=== PATIENT | female | born 1990 | race Caucasian/White ===

== ENCOUNTER 2016-08-25 14:19 | Emergency (ER) | payer OTHER ==
[~2016-08-25] VITALS: Ht 162.6 cm; Wt 64.0 kg
[~2016-08-25 14:19] MED LIST: ACETAMINOPHEN/O1 TA3 PO; APRISO0.375 G1 PO; ATA10 PO; BENADRYL ALLERG25 M1 PO; BENTYL20 MG PO; CANASA1000 MG RC; CIPROFLOXACIN500 MG PO; DIF100 PO; DIPHENOX/ATROPI1 TA1 PO; ENTOCORT EC3 MG PO; EPIPEN 2-PAK1 MG/ML IM; FLA250 PO; LAC PO; LIALDA PO; LIALDA1.2 GM PO; LOMOTIL1 TAB PO; LORAZEPAM0.5 MG PO; MAC100 PO; MEDDP PO; MESALAMINE PR; OMEPRAZOLE40 M1 PO; PREDNISONE1 MG PO; PYR100 PO; PYRIDIUM200 MG PO; RXMED PO
[2016-08-25 15:36] LABS: CALCIUM 9.1 mg/dL (8.5-10.1); CARBON DIOXIDE 31.5 mmol/L (21-32); CHLORIDE SERUM 106 mmol/L (98-107); CREATININE SERUM 0.9 mg/dL (0.6-1.0); GFR1 > 60 mL/min; GLUCOSE SERUM 73 mg/dL (74-106); POTASSIUM SERUM 3.7 mmol/L (3.5-5.1); SODIUM SERUM 141 mmol/L (136-145)
[2016-08-25 15:39] LABS: BASOPHIL % 2.3 % (0-2); PLATELET COUNT 269 x10^3mcL (130-400); RED CELL DISTRIBUTION WIDTH 12.6 % (11.5-14.5)
[2016-08-25 15:42] LABS: ALBUMIN 3.6 g/dL (3.4-5.0); ALKALINE PHOSPHATASE 91 U/L (46-116); ALT/SGPT 48 U/L (14-59); AMYLASE 82 U/L (25-115); AST/SGOT 31 U/L (15-37); BILIRUBIN TOTAL 0.64 mg/dL (0.20-1.00); LIPASE 190 IU/L (73-393); TOTAL PROTEIN, SERUM 7.7 g/dL (6.4-8.2)
[2016-08-25 17:03] VITALS: BP 120/64
== END 2016-08-25 17:03 | disposition home or self-care (01) ==
LOC: ED 14:19
PROVIDERS: Emergency Medicine
DX: K51.90 Ulcerative colitis, unspecified, without complications (principal)
CPT/HCPCS: 83880; J2405; J2930; J3010; J7030

== ENCOUNTER 2016-10-14 23:38 | Emergency (ER) | payer OTHER ==
[2016-10-15 03:14] LABS: BASOPHIL % 0.6 % (0-2); PLATELET COUNT 285 x10^3mcL (130-400); RED CELL DISTRIBUTION WIDTH 12.8 % (11.5-14.5)
[2016-10-15 06:10] VITALS: BP 120/73
== END 2016-10-15 06:10 | disposition home or self-care (01) ==
LOC: ED 23:38
PROVIDERS: Emergency Medicine
DX: O03.9 Complete or unspecified spontaneous abortion without complication (principal)
CPT/HCPCS: J2270; Q0162

== ENCOUNTER 2016-11-04 10:24 | Emergency (ER) | payer OTHER ==
[~2016-11-04] VITALS: Ht 162.6 cm; Wt 55.3 kg
[2016-11-04 12:31] LABS: BASOPHIL % 0.1 % (0-2); PLATELET COUNT 314 x10^3mcL (130-400); RED CELL DISTRIBUTION WIDTH 13.3 % (11.5-14.5)
[2016-11-04 12:35] LABS: CALCIUM 8.9 mg/dL (8.5-10.1); CARBON DIOXIDE 30.1 mmol/L (21-32); CHLORIDE SERUM 105 mmol/L (98-107); CREATININE SERUM 0.7 mg/dL (0.6-1.0); GFR1 > 60 mL/min; GLUCOSE SERUM 87 mg/dL (74-106); POTASSIUM SERUM 3.3 mmol/L (3.5-5.1); SODIUM SERUM 140 mmol/L (136-145)
[2016-11-04 12:40] LABS: microscopic required? YES; urine erythrocyte 1+ (NEGATIVE)
[2016-11-04 12:47] LABS: ALKALINE PHOSPHATASE 73 U/L (46-116); ALT/SGPT 20 U/L (14-59); AST/SGOT 12 U/L (15-37); BILIRUBIN TOTAL 0.41 mg/dL (0.20-1.00); LIPASE 187 IU/L (73-393); TOTAL PROTEIN, SERUM 7.6 g/dL (6.4-8.2)
[2016-11-04 13:00] LABS: ALBUMIN 3.2 g/dL (3.4-5.0)
[2016-11-04 13:46] VITALS: BP 118/71
== END 2016-11-04 13:46 | disposition home or self-care (01) ==
LOC: ED 10:24
PROVIDERS: Emergency Medicine
DX: K51.90 Ulcerative colitis, unspecified, without complications (principal)
CPT/HCPCS: 83880; J2405; J2930; J3010; J7030

== ENCOUNTER 2016-12-07 16:50 | Inpatient (IN) | payer OTHER ==
[~2016-12-07] VITALS: Ht 162.6 cm; Wt 63.5 kg
[2016-12-07 19:41] LABS: PLATELET COUNT 435 x10^3mcL (130-400); RED CELL DISTRIBUTION WIDTH 14.6 % (11.5-14.5)
[2016-12-07 20:01] LABS: ATYPICAL LYMPH 1 %; BAND NEUTROPHIL 10 % (0-10); BASOPHIL 1 % (0-2); METAMYELOCTE 1 % (0-2); MONOCYTE 14 % (0-7); SEGMENTED NEUTROPHILS 52 % (37-75)
[2016-12-07 20:02] LABS: rbc morphology (normal/abnorm) ABNORMAL (NORMAL); tear drop cell (dacryocyte) 1+
[2016-12-07 20:03] LABS: CALCIUM 8.7 mg/dL (8.5-10.1); CARBON DIOXIDE 31.3 mmol/L (21-32); CHLORIDE SERUM 92 mmol/L (98-107); GFR1 > 60 mL/min; GLUCOSE SERUM 111 mg/dL (74-106); POTASSIUM SERUM 3.4 mmol/L (3.5-5.1); SODIUM SERUM 132 mmol/L (136-145)
[2016-12-07 20:07] LABS: ALBUMIN 1.8 g/dL (3.4-5.0); ALKALINE PHOSPHATASE 74 U/L (46-116); ALT/SGPT 40 U/L (14-59); AMYLASE 26 U/L (25-115); AST/SGOT 18 U/L (15-37); BILIRUBIN TOTAL 0.5 mg/dL (0.20-1.00); LIPASE 51 IU/L (73-393); TOTAL PROTEIN, SERUM 6.6 g/dL (6.4-8.2)
[2016-12-07 22:06] LABS: T3 TOTAL 0.75 ng/mL
[2016-12-07 22:11] LABS: MAGNESIUM 1.8 mg/dL (1.8-2.4); PHOSPHOROUS 4.4 mg/dL (2.5-4.9); TRIGLYCERIDES 46 mg/dL (<150)
[2016-12-07 22:12] VITALS: BP 112/67
[2016-12-07 22:12] LABS: FREE T4 1.76 ng/dL (0.76-1.46); FREE THYROXINE INDEX 2.4 ug/dL (1.4-4.5); T4(THYROXINE) 6.1 ug/dL (4.7-13.3)
[2016-12-07 22:15] VITALS: Ht 162.6 cm; Wt 63.5 kg
[2016-12-07 22:16] VITALS: BP 112/67
[2016-12-07 22:23] LABS: CHOLESTEROL < 50 mg/dL (<200); CHOLESTEROL/HDL RATIO 1.9; HDL CHOLESTEROL 26 mg/dL (40-60)
[2016-12-08] VITALS (8 sets, daily range): BP systolic 91–111; BP diastolic 54–66
[2016-12-08 00:11] LABS: UA SPECIFIC GRAVITY <1.005 (1.005-1.035)
[2016-12-08 00:13] LABS: microscopic required? YES; urine erythrocyte 1+ (NEGATIVE)
[2016-12-08 06:17] LABS: CALCIUM 8.2 mg/dL (8.5-10.1); CARBON DIOXIDE 27.9 mmol/L (21-32); CHLORIDE SERUM 102 mmol/L (98-107); CREATININE SERUM 0.7 mg/dL (0.6-1.0); GFR1 > 60 mL/min; GLUCOSE SERUM 122 mg/dL (74-106); SODIUM SERUM 137 mmol/L (136-145)
[2016-12-08 06:29] LABS: BASOPHIL % 0 % (0-2); PLATELET COUNT 401 x10^3mcL (130-400); RED CELL DISTRIBUTION WIDTH 15.2 % (11.5-14.5)
[2016-12-08 14:00] LABS: AMPHETAMINE QUAL UR NONE DETECTED (NEG <=1000)
[2016-12-09 05:26] VITALS: BP 99/58
[2016-12-09 06:32] LABS: PLATELET COUNT 368 x10^3mcL (130-400)
[2016-12-09 06:38] LABS: CALCIUM 8.1 mg/dL (8.5-10.1); CARBON DIOXIDE 27.3 mmol/L (21-32); CHLORIDE SERUM 104 mmol/L (98-107); CREATININE SERUM 0.6 mg/dL (0.6-1.0); GFR1 > 60 mL/min; GLUCOSE SERUM 139 mg/dL (74-106); PHOSPHOROUS 3.1 mg/dL (2.5-4.9); SODIUM SERUM 137 mmol/L (136-145)
[2016-12-09 06:52] LABS: RED CELL DISTRIBUTION WIDTH 14.6 % (11.5-14.5)
[2016-12-09 08:01] LABS: BAND NEUTROPHIL 20 % (0-10); BASOPHIL 0 % (0-2); METAMYELOCTE 2 % (0-2); MONOCYTE 7 % (0-7); SEGMENTED NEUTROPHILS 65 % (37-75)
[2016-12-09 08:02] LABS: PLATELET MORPHOLOGY PLATELETS NORMAL
[2016-12-09 08:03] LABS: rbc morphology (normal/abnorm) ABNORMAL (NORMAL)
[2016-12-09 10:20] VITALS: BP 87/62
[2016-12-09 14:41] VITALS: BP 99/60
[2016-12-09] MEDS ORDERED: APAP500 MG PO (14:52)
[2016-12-09 15:05] VITALS: BP 99/60
[2016-12-09] MEDS ORDERED: EPIPEN JR 20.5 MG/ML IM (15:49)
[2016-12-09] MEDS ORDERED: NORCO1 TA2 PO (15:49)
== END 2016-12-09 15:55 | disposition home or self-care (01) | DRG 871 ==
LOC: ED 16:50 → DU 20:53
PROVIDERS: Emergency Medicine; ADMIT Family Medicine
DX: A41.9 Sepsis, unspecified organism (principal); E43 Unspecified severe protein-calorie malnutrition; N17.0 Acute kidney failure with tubular necrosis; A09 Infectious gastroenteritis and colitis, unspecified; E87.1 Hypo-osmolality and hyponatremia; K51.90 Ulcerative colitis, unspecified, without complications; R65.20 Severe sepsis without septic shock; D64.9 Anemia, unspecified; Z68.23 Body mass index [BMI] 23.0-23.9, adult; Z91.013 Allergy to seafood; Z82.49 Family history of ischemic heart disease and other diseases of the circulatory system; E87.6 Hypokalemia; E87.8 Other disorders of electrolyte and fluid balance, not elsewhere classified; F41.9 Anxiety disorder, unspecified
CPT/HCPCS: 83880; 84439; 87046; 87046-59; 94150; J1956; J2270; J2405; J2930; J3010; J3490; J7030

== ENCOUNTER 2016-12-18 23:27 | Emergency (ER) | payer OTHER ==
[~2016-12-18 23:27] MED LIST changes: +APAP500 MG PO; +EPIPEN JR 20.5 MG/ML IM; +NORCO1 TA2 PO
[2016-12-19 00:31] LABS: microscopic required? YES; urine erythrocyte 1+ (NEGATIVE)
[2016-12-19 00:39] LABS: CALCIUM 8.2 mg/dL (8.5-10.1); CHLORIDE SERUM 99 mmol/L (98-107); CREATININE SERUM 0.9 mg/dL (0.6-1.0); GFR1 > 60 mL/min; GLUCOSE SERUM 93 mg/dL (74-106); SODIUM SERUM 135 mmol/L (136-145)
[2016-12-19 00:44] LABS: ALBUMIN 1.5 g/dL (3.4-5.0); ALKALINE PHOSPHATASE 44 U/L (46-116); ALT/SGPT 5 U/L (14-59); AMYLASE 26 U/L (25-115); AST/SGOT 6 U/L (15-37); BILIRUBIN TOTAL 0.2 mg/dL (0.20-1.00); LIPASE 75 IU/L (73-393); TOTAL PROTEIN, SERUM 5.9 g/dL (6.4-8.2)
[2016-12-19 00:45] LABS: RED CELL DISTRIBUTION WIDTH 14.9 % (11.5-14.5)
[2016-12-19 00:46] LABS: PLATELET COUNT 746 x10^3mcL (130-400)
[2016-12-19 03:17] LABS: BAND NEUTROPHIL 15 % (0-10); BASOPHIL 0 % (0-2); MONOCYTE 14 % (0-7); SEGMENTED NEUTROPHILS 53 % (37-75)
[2016-12-19 03:19] LABS: PATH REVIEW for HEMA YES; rbc morphology (normal/abnorm) ABNORMAL (NORMAL); target cell (codocyte) 1+
[2016-12-19 04:19] VITALS: BP 98/48
== END 2016-12-19 04:19 | disposition home or self-care (01) ==
LOC: ED 23:27
PROVIDERS: Emergency Medicine
DX: R19.7 Diarrhea, unspecified (principal); R10.30 Lower abdominal pain, unspecified; R11.10 Vomiting, unspecified; F99 Mental disorder, not otherwise specified; Z79.891 Long term (current) use of opiate analgesic; Z79.2 Long term (current) use of antibiotics; Z79.899 Other long term (current) drug therapy; Z91.013 Allergy to seafood
CPT/HCPCS: 85060; J1170; J2270; J2405; J7030; Q0092

== ENCOUNTER 2017-04-02 03:56 | Observation (INO) | payer OTHER ==
[~2017-04-02] VITALS: Ht 162.6 cm; Wt 64.4 kg
[2017-04-02 07:04] LABS: BASOPHIL % 0.4 % (0-2); PLATELET COUNT 347 x10^3mcL (130-400)
[2017-04-02 07:08] LABS: RED CELL DISTRIBUTION WIDTH 17.8 % (11.5-14.5)
[2017-04-02 07:21] LABS: ALBUMIN 3.8 g/dL (3.4-5.0); ALKALINE PHOSPHATASE 74 U/L (46-116); ALT/SGPT 23 U/L (14-59); AST/SGOT 13 U/L (15-37); BILIRUBIN TOTAL 0.31 mg/dL (0.20-1.00); CALCIUM 9.1 mg/dL (8.5-10.1); CHLORIDE SERUM 101 mmol/L (98-107); CREATININE SERUM 0.9 mg/dL (0.6-1.0); GFR1 > 60 mL/min; GLUCOSE SERUM 93 mg/dL (74-106); LIPASE 82 IU/L (73-393); SODIUM SERUM 137 mmol/L (136-145)
[2017-04-02 07:24] LABS: TOTAL PROTEIN, SERUM 8.6 g/dL (6.4-8.2)
[2017-04-02 07:26] LABS: POTASSIUM SERUM 2.8 mmol/L (3.5-5.1)
[2017-04-02 09:00] LABS: AMPHETAMINE QUAL UR NONE DETECTED (NEG <=1000)
[2017-04-02 09:41] VITALS: BP 120/79
[2017-04-02 09:52] VITALS: BP 120/79
[2017-04-02 10:54] LABS: MAGNESIUM 2.2 mg/dL (1.8-2.4); PHOSPHOROUS 3.5 mg/dL (2.5-4.9)
[2017-04-02 10:56] LABS: CHOLESTEROL/HDL RATIO 1.7; T3 TOTAL 1.15 ng/mL
[2017-04-02 11:15] LABS: FREE T4 1.06 ng/dL (0.76-1.46); FREE THYROXINE INDEX 2.9 ug/dL (1.4-4.5); T4(THYROXINE) 8.4 ug/dL (4.7-13.3)
[2017-04-02 11:45] LABS: microscopic required? YES; urine erythrocyte 2+ (NEGATIVE)
[2017-04-02 13:39] VITALS: BP 107/66
[2017-04-02 16:58] VITALS: BP 133/68
[2017-04-02 22:17] VITALS: BP 130/76
[2017-04-03 05:47] VITALS: BP 120/67
[2017-04-03 06:45] LABS: CALCIUM 8.6 mg/dL (8.5-10.1); CARBON DIOXIDE 25.2 mmol/L (21-32); CHLORIDE SERUM 105 mmol/L (98-107); CREATININE SERUM 0.8 mg/dL (0.6-1.0); GFR1 > 60 mL/min; GLUCOSE SERUM 78 mg/dL (74-106); POTASSIUM SERUM 3.9 mmol/L (3.5-5.1); SODIUM SERUM 138 mmol/L (136-145)
[2017-04-03 06:46] LABS: BASOPHIL % 0.6 % (0-2); PLATELET COUNT 288 x10^3mcL (130-400)
[2017-04-03 06:57] LABS: RED CELL DISTRIBUTION WIDTH 17.8 % (11.5-14.5)
[2017-04-03 09:54] VITALS: BP 106/59
[2017-04-03] MEDS ORDERED: NORCO1 TA2 PO (13:05)
[2017-04-03] MEDS ORDERED: ZOF4 PO (13:05)
[2017-04-03 13:23] VITALS: BP 106/59
[2017-04-03 13:41] VITALS: BP 107/68
== END 2017-04-03 14:03 | disposition home or self-care (01) | DRG 387 ==
LOC: ED 03:56 → DU 08:04
PROVIDERS: Emergency Medicine; ADMIT Family Medicine
DX: K51.90 Ulcerative colitis, unspecified, without complications (principal); F41.8 Other specified anxiety disorders; E87.6 Hypokalemia; Z68.24 Body mass index [BMI] 24.0-24.9, adult
CPT/HCPCS: 83880; 84439; G0378; J1885; J2270; J2405; J2550; J3010; J3480; J7030; Q0092